=== PATIENT | male | born 1980 | race Caucasian/White ===

== ENCOUNTER 2022-05-21 06:50 | Emergency (ER) | payer SELFPAY ==
[~2022-05-21] VITALS: Ht 177.8 cm; Wt 98.0 kg
[2022-05-21] MEDS ORDERED: KETOROLAC 30MG/ML VIAL IV ONE (08:00)
[2022-05-21 08:31] LABS: BASOPHILS % 0.2 % (0.0-2.0); HEMATOCRIT. 51.3 % (42.0-52.0); HEMOGLOBIN. 18.3 g/dL (14.0-18.0); MEAN CORPUSCULAR HEMOGLOBIN 33.9 pg (28.0-32.0); MEAN PLATELET VOLUME 9.5 fl (7.4-10.4); NEUTROPHILS % 64.8 % (40.0-76.0); PLATELET 193 x1000/uL (130-400); RED BLOOD CELL COUNT 5.39 mill/uL (4.7-6.1); RED CELL DISTRIBUTION WIDTH 12.1 % (11.6-14.6)
[2022-05-21 08:39] LABS: PROTHROMBIN TIME 10.7 sec (9.6-11.0)
[2022-05-21 08:44] LABS: CHLORIDE 103 mEq/L (98-107)
[2022-05-21 09:14] LABS: CLARITY URINE CLEAR (CLEAR); COLOR URINE YELLOW (YELLOW); KETONES URINE TRACE (NEGATIVE); LEUKOCYTE ESTERASE URINE NEGATIVE (NEGATIVE); NITRITE URINE NEGATIVE (NEGATIVE); OCCULT BLOOD URINE NEGATIVE (NEGATIVE); PH URINE 7.5 (4.5-8.0); PROTEIN URINE NEGATIVE (NEGATIVE); SPECIFIC GRAVITY URINE 1.022 (1.005-1.030); UROBILINOGEN URINE 0.2 E.U./dL (0.2-1.0)
[2022-05-21 11:00] VITALS: BP 130/85
== END 2022-05-21 12:15 | disposition home or self-care (01) ==
LOC: ER 06:50
DX: R10.11 Right upper quadrant pain (principal)
CPT/HCPCS: 36415; 76705; 80053; 81003; 83690; 85025; 85610; 96374; 99285; J1885; Z7610

== ENCOUNTER 2024-06-19 07:13 | Emergency (ER) | payer MEDICAID ==
[~2024-06-19] VITALS: Ht 167.6 cm; Wt 91.0 kg
[2024-06-19 07:26] VITALS: O2SAT 99
[2024-06-19 07:31] VITALS: TEMP 36.8; O2SAT 99
[2024-06-19] MEDS ORDERED: HYDR30CR80 TP (08:44)
[2024-06-19] MEDS ORDERED: LIDO35.421 TP (08:44)
[2024-06-19 08:58] VITALS: BP 168/93; PULSE 72; RESP 16
[2024-06-19] MEDS: KETOROLAC 30MG/ML VIAL IM ONE (08:58)
== END 2024-06-19 09:01 | disposition home or self-care (01) ==
LOC: ER 07:13
DX: K64.9 Unspecified hemorrhoids (principal)
CPT/HCPCS: 96372; 99283; J1885; Z7610